=== PATIENT | female | born 1995 | race Caucasian/White ===

== ENCOUNTER 2019-02-02 11:55 | Emergency (ER) | payer MEDICAID, OTHER ==
[~2019-02-02] VITALS: Wt 80.0 kg
[2019-02-02 12:01] VITALS: BP 122/75; PULSE 90; RESP 18
[2019-02-02] MEDS ORDERED: ACETAMINOPHEN 500 MG TAB PO STA (12:21)
[2019-02-02] MEDS ORDERED: CEPHALEXIN 500 MG CAP PO ONE (13:30)
[2019-02-02] MEDS ORDERED: ACET500C5 PO (14:06)
[2019-02-02] MEDS ORDERED: CEPH-443 PO (14:06)
--- NOTE | 2019-02-02 14:10 | ERD ---
ER Documentation Chief Complaint Chief Complaint SOB, CP SINCE KLAST NIGHT HPI 23-year-old female presents with pain with inspiration since last night. She denies any recent URIs. Denies any sustained anterior chest pain patient has any hemoptysis, syncope, calf swelling. Patient has history of current first trimester .. She has vaginal bleeding or abdominal pain. ROS All systems reviewed and are negative except as per history of present illness. Medications Home Meds Active Scripts Cephalexin* (Keflex*) 500 Mg Capsule, 500 MG PO QID for 5 Days, CAP Prov:FABBY PEREZ MD 02/02/19 Acetaminophen* (Tylophen*) 500 Mg Capsule, 1 CAP PO Q6H PRN for PAIN AND OR ELEVATED TEMP, #15 CAP Prov:FABBY PEREZ MD 02/02/19 Allergies Allergies: Coded Allergies: No Known Allergy (Unverified , 02/02/19) PMhx/Soc Medical and Surgical Hx: pt denies Medical Hx, pt denies Surgical Hx Hx Alcohol Use: Yes Hx Substance Use: No Hx Tobacco Use: No Smoking Status: Never smoker FmHx Family History: No diabetes, No coronary disease, No other Physical Exam Vitals Vital Signs Date Temp Pulse Resp B/P (MAP) Pulse Ox O2 O2 Flow FiO2 Time Delivery Rate 02/02/19 98.3 90 18 122/75 99 12:01 (91) Physical Exam Const: No acute distress Head: Atraumatic Eyes: Normal Conjunctiva ENT: Normal External Ears, Nose and Mouth. Neck: Full range of motion. No meningismus. Resp: Clear to auscultation bilaterally Cardio: Regular rate and rhythm, no murmurs Abd: Soft, non tender, non distended. Normal bowel sounds Skin: No petechiae or rashes Back: No midline or flank tenderness Ext: No cyanosis, or edema Neur: Awake and alert Psych: Normal Mood and Affect Results 24 hrs Laboratory Tests Test 02/02/19 12:31 02/02/19 12:33 Urine Color CAL Urine Clarity CLOUDY Urine pH 5.0 Urine Specific [place] 1.029 Urine Ketones NEGATIVE mg/dL Urine Nitrite NEGATIVE mg/dL Urine Bilirubin NEGATIVE mg/dL Urine Urobilinogen 1+ mg/dL Urine Leukocyte Esterase 3+ Charissa/ul Urine Microscopic RBC 11 /HPF Urine Microscopic WBC 50 /HPF Urine Squamous Epithelial Cells MANY /HPF Urine Bacteria FEW /HPF Urine Mucus MANY /HPF Urine Hemoglobin NEGATIVE mg/dL Urine Glucose NEGATIVE mg/dL Urine Total Protein NEGATIVE mg/dl POC Beta HCG, Qualitative POSITIVE Current Medications Medications Dose Sig/Maria Alejandra Start Time Status Last (Trade) Ordered Route PRN Stop Time Admin Dose Reason Admin 500 mg ONCE STAT 02/02/19 DC 02/02/19 Acetaminophen PO 12:21 12:32 (Tylenol 02/02/19 12:23 Tab) Cephalexin 500 mg ONCE ONCE 02/02/19 DC 02/02/19 (Keflex) PO 13:30 13:30 02/02/19 13:31 Procedures/MDM EKG: Rate/Rhythm: Normal Sinus Rhythm. Rate equals 101. QRS, ST, T-waves: No changes consistent w/ acute ischemia Impression: No evidence of ischemia or arrhythmia Shows leukocyte esterase and white blood cells. There are many epithelial cells. Chest x-ray deferred given state. Patient has no signs or symptoms to suggest pneumonia, hypoxemia, PE, abdominal pain, complications of . She has findings of UTI and we will treat for this although uncertain there is related to symptoms. She may have c ostochondritis or chest wall strain. Will treat with Tylenol, Keflex, primary care follow-up and return precautions. The patient was stable with no new complaints during the ER course. Clinically, there is no current evidence to suggest meningitis, sepsis, acute abdomen, pneumonia, stroke, acute coronary syndrome, pulmonary embolism, aortic dissection or any other emergent condition appearing to require further evaluation or hospitalization. Patient counseled regarding my diagnostic impression and care plan. Prior to discharge all questions answered. Pt agrees with treatment plan and understands strict return precautions. Pt is instructed to follow up with primary care provider within 24- 48 hours. Precautionary instructions provided including instructions to return to the ER if not improving or for any worsening or changing symptoms or concerns. Departure Diagnosis: Primary Impression: UTI (urinary tract infection) Urinary tract infection type: acute cystitis Hematuria presence: without hematuria Qualified Codes: N30.00 - Acute cystitis without hematuria Additional Impressions: Multiple complaints Chest wall pain Condition: Stable Patient Instructions: Understanding Urinary Tract Infections (UTIs), Chest Wall Pain, Costochondritis Additional Instructions: Urine shows signs of infection. Uncertain if cause of symptoms but will treat for this. EKG normal. Recommend further observation at home and return for new or worsening symptoms. Drink plenty of fluids at home. Recheck for pain, bleeding, shortness of breath, new or worsening symptoms. FABBY PEREZ MD Feb 02, 2019 14:10
== END 2019-02-02 14:18 | disposition home or self-care (01) ==
LOC: FTE 11:55
DX: O23.11 Infections of bladder in pregnancy, first trimester (principal); R07.89 Other chest pain; Z3A.00 Weeks of gestation of pregnancy not specified
CPT/HCPCS: 81001; 81025; 93005; Z7502; Z7610

== ENCOUNTER 2019-03-29 17:26 | Emergency (ER) | payer MEDICAID ==
[~2019-03-29] VITALS: Ht 175.3 cm; Wt 77.0 kg
[~2019-03-29 17:26] MED LIST: ACET500C5 PO; CEPH-443 PO
[2019-03-29 17:34] VITALS: Ht 175.3 cm; Wt 77.0 kg
[2019-03-29] MEDS ORDERED: ACETAMINOPHEN 500 MG TAB PO STA (17:51)
[2019-03-29] MEDS ORDERED: CEPH500C PO (19:32)
[2019-03-29] MEDS ORDERED: ACET-141 PO (19:33)
--- NOTE | 2019-03-29 19:37 | ERD ---
ER Documentation Chief Complaint Chief Complaint vag bleed today , 15 weeks preg , also c/o headache and back pain ROS All systems reviewed and are negative except as per history of present illness. Medications Home Meds Active Scripts Acetaminophen* (Acetaminophen*) 500 MG Extra Strength Tablet, 500 MG PO Q4H PRN for PAIN AND OR ELEVATED TEMP, #30 TAB Prov:BELLA MAX DO 03/29/19 Cephalexin* (Cephalexin*) 500 Mg Capsule, 500 MG PO BID for uti for 7 Days, #14 CAP Prov:BELLA MAX DO 03/29/19 Cephalexin* (Keflex*) 500 Mg Capsule, 500 MG PO QID for 5 Days, CAP Prov:FABBY PEREZ MD 02/02/19 Acetaminophen* (Tylophen*) 500 Mg Capsule, 1 CAP PO Q6H PRN for PAIN AND OR ELEVATED TEMP, #15 CAP Prov:FABBY PEREZ MD 02/02/19 Allergies Allergies: Coded Allergies: No Known Allergy (Unverified , 02/02/19) PMhx/Soc Medical and Surgical Hx: pt denies Medical Hx, pt denies Surgical Hx Hx Alcohol Use: Yes Hx Substance Use: No Hx Tobacco Use: No Smoking Status: Never smoker Physical Exam Vitals Vital Signs Date Temp Pulse Resp B/P (MAP) Pulse Ox O2 O2 Flow FiO2 Time Delivery Rate 03/29/19 97.8 102 18 116/74 97 17:34 (88) Physical Exam Const: No acute distress Head: Atraumatic Eyes: Normal Conjunctiva ENT: Normal External Ears, Nose and Mouth. Neck: Full range of motion. No meningismus. Resp: Clear to auscultation bilaterally Cardio: Regular rate and rhythm, no murmurs Abd: Soft, non tender, non distended. Normal bowel sounds Skin: No petechiae or rashes Back: No midline or flank tenderness Ext: No cyanosis, or edema Neur: Awake and alert Psych: Normal Mood and Affect Result Diagram: 03/29/19175703/29/191757 Results 24 hrs Laboratory Tests Test 03/29/19 17:58 White Blood Count 11.2 10^3/ul Red Blood Count 4.59 10^6/ul Hemoglobin 8.6 g/dl Hematocrit 31.5 % Mean Corpuscular Volume 68.6 fl Mean Corpuscular Hemoglobin 18.7 pg Mean Corpuscular Hemoglobin Concent 27.3 g/dl Red Cell Distribution Width 19.8 % Platelet Count 360 10^3/UL Mean Platelet Volume 9.3 fl Immature Granulocytes % 0.400 % Neutrophils % 61.6 % Lymphocytes % 28.4 % Monocytes % 6.2 % Eosinophils % 3.0 % Basophils % 0.4 % Nucleated Red Blood Cells % 0.0 /100WBC Immature Granulocytes # 0.040 10^3/ul Neutrophils # 6.9 10^3/ul Lymphocytes # 3.2 10^3/ul Monocytes # 0.7 10^3/ul Eosinophils # 0.3 10^3/ul Basophils # 0.1 10^3/ul Nucleated Red Blood Cells # 0.0 10^3/ul Prothrombin Time 13.1 Sec Prothrombin Time Ratio 1.0 INR International Normalized Ratio 0.98 Activated Partial Thromboplast Time 27.5 Sec Urine Color YELLOW Urine Clarity CLOUDY Urine pH 5.0 Urine Specific [place] 1.021 Urine Ketones NEGATIVE mg/dL Urine Nitrite NEGATIVE mg/dL Urine Bilirubin NEGATIVE mg/dL Urine Urobilinogen NEGATIVE mg/dL Urine Leukocyte Esterase 3+ Charissa/ul Urine Microscopic RBC 13 /HPF Urine Microscopic WBC 88 /HPF Urine Squamous Epithelial Cells MANY /HPF Urine Mucus FEW /HPF Urine Hemoglobin 3+ mg/dL Urine Glucose NEGATIVE mg/dL Urine Total Protein NEGATIVE mg/dl Sodium Level 138 mmol/L Potassium Level 3.7 mmol/L Chloride Level 107 mmol/L Carbon Dioxide Level 21 mmol/L Anion Gap 10 Blood Urea Nitrogen 8 mg/dl Creatinine 0.44 mg/dl Est Glomerular Filtrat Rate mL/min > 60 mL/min Glucose Level 86 mg/dl Calcium Level 9.0 mg/dl Total Bilirubin 0.4 mg/dl Direct Bilirubin 0.00 mg/dl Indirect Bilirubin 0.4 mg/dl Aspartate Amino Transf (AST/SGOT) 21 IU/L Alanine Aminotransferase (ALT/SGPT) 8 IU/L Alkaline Phosphatase 94 IU/L Total Protein 8.8 g/dl Albumin 4.1 g/dl Globulin 4.70 g/dl Albumin/Globulin Ratio 0.87 Beta HCG, Quantitative 26077.0 mIU/ml Current Medications Medications Dose Sig/Maria Alejandra Start Time Status Last (Trade) Ordered Route PRN Stop Time Admin Dose Reason Admin 500 mg ONCE STAT 03/29/19 DC 03/29/19 Acetaminophen PO 17:51 17:57 (Tylenol 03/29/19 17:52 Tab) Departure Diagnosis: Primary Impression: Vaginal bleeding in patient at less than 20 weeks ges... Additional Impression: UTI (urinary tract infection) Hematuria presence: without hematuria Condition: Fair Patient Instructions: Understanding Urinary Tract Infections (UTIs), Bleeding During Early Additional Instructions: Call your primary care doctor TOMORROW for an appointment during the next 1-2 days.See the doctor sooner or return here if your condition worsens before your appointment time. Return to ED for repeat blood test if vaginal bleeding continues in 48 hours. Follow up with [employer] BELLA MAX DO Mar 29, 2019 19:37
[2019-03-29 19:48] VITALS: BP 103/70; PULSE 87; RESP 17
== END 2019-03-29 19:48 | disposition home or self-care (01) ==
LOC: FTE 17:26
DX: O20.9 Hemorrhage in early pregnancy, unspecified (principal); O23.42 Unspecified infection of urinary tract in pregnancy, second trimester; Z3A.15 15 weeks gestation of pregnancy
CPT/HCPCS: 76801; 76817; 80053; 81001; 84702; 85025; 85610; 85730; 86900; 86901; Z7610; 36415